=== PATIENT | female | born 1970 | race Caucasian/White ===

== ENCOUNTER 2024-02-17 02:31 | Outpatient (CLI) | payer OTHER, SELFPAY ==
[2024-02-22 10:52] LABS: Varicella IgG Antibody Positive (See Note)
[2024-02-22 10:59] LABS: Measles IgG Antibody Positive (See Note); Mumps Antibody IgG Positive (See Note)
[2024-02-22 11:02] LABS: Rubella IgG Ab (UVM) Positive (See Note)
== END 2024-02-17 02:32 | disposition home or self-care (01) ==
LOC: LBO 02:31
PROVIDERS: PCP Internal Medicine; Visit Provider Nurse Practitioner Family
DX: Z02.1 Encounter for pre-employment examination (principal)
CPT/HCPCS: 86787; 86735; 86762; 86765